=== PATIENT | male | born 1940 | race Caucasian/White ===

== ENCOUNTER 2016-12-18 16:16 | Inpatient (IN) | payer MEDICARE, BC ==
[~2016-12-18] VITALS: Ht 185.4 cm; Wt 113.6 kg
[~2016-12-18 16:16] MED LIST: ALDACTONE 25MG25 M1 PO; AMBIEN 5MG TABLE5 MG PO; AMOXICILLIN 50500 MG PO; ASPIRIN E.C. 8181 MG; BACTRIM DS 8001 TAB PO; BENADRYL25 M2 PO; CARDIZEM120 MG; CATAPRES-TTS 20.2 M1; CATAPRES0.2 MG; CEPHALEXIN500 M1 PO; COUMADIN 1010 MG/TAB PO; EDARB4012.5TAB PO; EDARB4025TAB PO; HYZAAR 50-12.1 UDTAB PO; INSLANT SQ; K-TAB20 PO; LANOXIN 0.120.125 MG PO; LASIX 20MG TABL20 MG PO; LASIX 40MG TABL40 MG PO; LOVENOX 6060 MG/0.6 SQ; NOVOLOG FLEX100 U/ML SC; NOVOLOG FLEX100 U/ML SQ; PERCOCET 325 MG1 TA2 PO; PRINIVIL20 MG PO; TOPROL XL 25MG25 MG PO; TOPROL XL100 MG; TOPROL XL100 MG PO; TYLENOL EXTRA500 M1 PO; TYLENOL PM EXTR1 TA1 PO; ULTRAM 50MG TAB50 MG PO; ZAROXOLYN 2.52.5 MG PO; digitek PO
[2016-12-18 17:18] LABS: BASO % 0.3 % (0.0-2.0); EOS % 0.3 % (0-4.0); GRAN # 9.5 (1.4-6.5); HEMATOCRIT 45.3 % (42.0-52.0); HEMOGLOBIN 15.3 g/dl (13.5-18.0); LYMPH # 0.5 (1.2-3.4); LYMPH % 4.3 % (20.0-51.0); MEAN CELL VOLUME 100 fl (80.0-100.0); MEAN CORPUSCULAR HEMOGLOBIN 34 pg (27.0-31.0); MEAN CORPUSCULAR HGB CONC 34 g/dl (33.0-37.0); MEAN PLATELET VOLUME 10.7 fl (7.4-10.4); MONO # 0.7 (0.1-0.6); MONO % 6.6 % (1.7-9.3); PLATELET COUNT 133 K/mm3 (130-400); RED BLOOD COUNT 4.55 M/mm3 (4.20-5.60); REDCELL DISTRIBUTION WIDTH-CV 15.7 % (11.5-14.5); WHITE BLOOD COUNT 10.8 K/mm3 (4.8-10.8)
[2016-12-18 17:29] LABS: ADJUSTED CALCIUM 8.9 mg/dL (8.4-10.2); ALBUMIN 4.5 gm/dL (3.5-5.0); BILIRUBIN,TOTAL 1.7 mg/dL (0.0-1.0); C-REACTIVE PROTEIN 2.6 mg/dL (0.0-0.9); CALCIUM 9.3 mg/dL (8.4-10.2); CREATININE, serum 1.03 mg/dL (0.66-1.25); INR 3.1 (0.8-3.0); POTASSIUM 3.6 mmol/L (3.4-5.0); TOTAL PROTEIN 7.6 gm/dL (6.4-8.2)
[2016-12-18 17:58] LABS: DIGOXIN 0.6 ng/mL (0.8-2.0)
[2016-12-18 20:52] VITALS: BP 132/71; PULSE 84; TEMP 97.6
[2016-12-18 22:06] VITALS: BP 138/89; PULSE 100; TEMP 98.1
[2016-12-19 01:56] VITALS: BP 135/74; PULSE 71; TEMP 98.4
[2016-12-19 05:36] VITALS: BP 126/84; PULSE 91; TEMP 98.9
[2016-12-19 07:16] LABS: HEMATOCRIT 45.7 % (42.0-52.0); HEMOGLOBIN 14.8 g/dl (13.5-18.0); MEAN CELL VOLUME 103 fl (80.0-100.0); MEAN CORPUSCULAR HEMOGLOBIN 33 pg (27.0-31.0); MEAN CORPUSCULAR HGB CONC 32 g/dl (33.0-37.0); MEAN PLATELET VOLUME 10.8 fl (7.4-10.4); PLATELET COUNT 146 K/mm3 (130-400); RED BLOOD COUNT 4.45 M/mm3 (4.20-5.60); REDCELL DISTRIBUTION WIDTH-CV 16.1 % (11.5-14.5); WHITE BLOOD COUNT 3.1 K/mm3 (4.8-10.8)
[2016-12-19 07:30] LABS: ALBUMIN 4.1 gm/dL (3.5-5.0); CALCIUM 8.8 mg/dL (8.4-10.2); CREATININE, serum 1.04 mg/dL (0.66-1.25); PHOSPHOROUS 3.3 mg/dL (2.5-4.5); POTASSIUM 3.9 mmol/L (3.4-5.0)
[2016-12-19 07:31] LABS: ADD PATHOLOGY DIFF REVIEW NO
[2016-12-19 08:13] LABS: PROTHROMBIN TIME 36.1 SECONDS (9.7-12.8)
[2016-12-19 08:22] LABS: INR 3.1 (0.8-3.0)
[2016-12-19 10:04] LABS: BAND 55 % (0-10); EOSINOPHIL 2 % (0-4); NEUTROPHILS 8 % (42.0-75.2); TOTAL CELLS COUNTED 100
[2016-12-19 10:05] LABS: PLATELET ESTIMATE NORMAL (NORMAL)
[2016-12-19 10:26] VITALS: BP 123/77; PULSE 115; TEMP 98.9
[2016-12-19 14:26] VITALS: BP 155/87; PULSE 110; TEMP 100.2
[2016-12-19 14:55] VITALS: TEMP 99.6
== END 2016-12-19 15:33 | disposition home or self-care (01) | DRG 389 ==
LOC: COL.ER 16:16 → JCC 19:02
PROVIDERS: Nurse Practitioner; Surgery
DX: K56.5 Intestinal adhesions [bands] with obstruction (postinfection) (principal); C78.7 Secondary malignant neoplasm of liver and intrahepatic bile duct; I10 Essential (primary) hypertension; Z85.038 Personal history of other malignant neoplasm of large intestine; Z85.05 Personal history of malignant neoplasm of liver; Z96.643 Presence of artificial hip joint, bilateral; Z79.01 Long term (current) use of anticoagulants; Z87.891 Personal history of nicotine dependence
CPT/HCPCS: A9284; J1170; J1644; J2270; J2405; J7030; J7120; Q9967

== ENCOUNTER 2018-03-26 06:22 | Emergency (ER) | payer MEDICARE, BC ==
[~2018-03-26] VITALS: Ht 185.4 cm; Wt 119.1 kg
[2018-03-26 06:29] VITALS: TEMP 98.1
[2018-03-26] MEDS ORDERED: CEPHALEXIN500 M1 PO (07:32)
[2018-03-26 07:38] VITALS: BP 140/70; PULSE 88
== END 2018-03-26 07:40 | disposition home or self-care (01) ==
LOC: COL.ER 06:22
DX: S61.212A Laceration without foreign body of right middle finger without damage to nail, initial encounter (principal); I48.91 Unspecified atrial fibrillation; I10 Essential (primary) hypertension; Z23 Encounter for immunization; Z85.038 Personal history of other malignant neoplasm of large intestine; Z79.01 Long term (current) use of anticoagulants; W22.8XXA Striking against or struck by other objects, initial encounter; Y92.009 Unspecified place in unspecified non-institutional (private) residence as the place of occurrence of the external cause

== ENCOUNTER → 2018-06-21 | Outpatient (CLI) | payer MEDICARE, BC ==
[~2018-06-21] MED LIST changes: +CARAFATE S1 GM/10 ML PO; +CATAPRES0.2 MG PO; +COUMADIN 5MG5 MG/TAB PO; +EDARBI40 MG PO; +FERROUS SU325 MG/TAB PO; +K-DUR 10 MEQ T10 MEQ PO; +PROTONIX 40MG T40 MG PO; +REVATIO20 MG PO; +TYLENOL 500MG500 MG PO; +ZEBETA 5MG5 MG PO
== END ==
LOC: COL.VAS 14:26
DX: Z13.6 Encounter for screening for cardiovascular disorders (principal); M79.89 Other specified soft tissue disorders

== ENCOUNTER 2018-07-11 08:09 | Emergency (ER) | payer MEDICARE, BC ==
[~2018-07-11] VITALS: Ht 185.4 cm; Wt 125.0 kg
[2018-07-11 08:13] VITALS: TEMP 97.9
[2018-07-11 08:51] LABS: COLLECTION METHOD CLEAN CATCH
[2018-07-11 08:56] LABS: PH 6 (5-8); SQUAMOUS EPITHELIAL 0-2 /hpf; URINE APPEARANCE Clear; URINE BACTERIA None Seen /hpf; URINE BILIRUBIN Negative (NEGATIVE); URINE BLOOD Negative (NEGATIVE); URINE COLOR Straw; URINE GLUCOSE Negative (NEGATIVE); URINE KETONE Negative (NEGATIVE); URINE LEUKOCYTE ESTERASE Negative (NEGATIVE); URINE NITRATE Negative (NEGATIVE); URINE PROTEIN(semi-quant) Negative (NEGATIVE); URINE RBC None Seen /hpf; URINE UROBILINOGEN Negative (NEGATIVE)
[2018-07-11 09:43] LABS: BASO % 0.6 % (0.0-2.0); EOS # 0.1 (0.0-0.7); EOS % 1.9 % (0-4.0); GRAN # 5.3 (1.4-6.5); GRAN % 78.9 % (42.2-75.2); HEMOGLOBIN 10.1 g/dl (13.5-18.0); LYMPH # 0.5 (1.2-3.4); LYMPH % 7.5 % (20.0-51.0); MEAN CELL VOLUME 96 fl (80.0-100.0); MEAN CORPUSCULAR HEMOGLOBIN 29 pg (27.0-31.0); MEAN CORPUSCULAR HGB CONC 30 g/dl (33.0-37.0); MONO # 0.7 (0.1-0.6); MONO % 10.7 % (1.7-9.3); PLATELET COUNT 189 K/mm3 (130-400); RED BLOOD COUNT 3.47 M/mm3 (4.20-5.60); REDCELL DISTRIBUTION WIDTH-CV 16.6 % (11.5-14.5)
[2018-07-11 09:46] LABS: HEMATOCRIT 33.3 % (42.0-52.0)
[2018-07-11 09:53] LABS: ALBUMIN 2.8 gm/dL (3.5-5.0); BILIRUBIN,TOTAL 0.7 mg/dL (0.0-1.0); C-REACTIVE PROTEIN 2.5 mg/dL (0.0-0.9); CALCIUM 8.1 mg/dL (8.4-10.2); CREATININE, serum 1.35 mg/dL (0.66-1.25); MAGNESIUM 1.8 mg/dL (1.6-2.3); PHOSPHOROUS 3.9 mg/dL (2.5-4.5); POTASSIUM 3.1 mmol/L (3.4-5.0); TOTAL PROTEIN 5.7 gm/dL (6.4-8.2)
[2018-07-11 11:51] VITALS: BP 119/74; PULSE 59
[2018-07-22] MEDS ORDERED: ALDACTONE 25MG25 M1 PO (11:34)
[2018-07-26] MEDS ORDERED: TESSALON P100 MG/CAP PO (11:13)
[2018-07-26] MEDS ORDERED: LASIX 20MG TABL20 MG PO (14:22)
== END 2018-07-11 11:53 | disposition home or self-care (01) ==
LOC: COL.ER 08:09
PROVIDERS: Emergency Medicine
DX: I50.9 Heart failure, unspecified (principal); N50.89 Other specified disorders of the male genital organs; I10 Essential (primary) hypertension; I48.91 Unspecified atrial fibrillation; Z95.0 Presence of cardiac pacemaker
CPT/HCPCS: J1940; J3480

== ENCOUNTER 2018-08-30 10:39 | Emergency (ER) | payer MEDICARE, BC ==
[~2018-08-30] VITALS: Ht 185.4 cm; Wt 162.7 kg
[~2018-08-30 10:39] MED LIST changes: +CALCITRIOL PO; +FERROUSAL325 MG PO; +HUMALOG100 U/ML SQ; +IPRATROPIUM BROM3 M1 IH; +MIRALAX PA17 GM/Dose PO; +PROTONIX20 MG PO; +ROBITUSSIN A-C S1 M1 PO; +TESSALON P100 MG/CAP PO
[2018-08-30 10:48] VITALS: TEMP 97.1
[2018-08-30 11:54] LABS: BASO % 0.3 % (0.0-2.0); EOS # 0.2 (0.0-0.7); EOS % 2.4 % (0-4.0); GRAN # 4.9 (1.4-6.5); GRAN % 76.8 % (42.2-75.2); LYMPH # 0.5 (1.2-3.4); LYMPH % 8.2 % (20.0-51.0); MEAN CELL VOLUME 92 fl (80.0-100.0); MEAN CORPUSCULAR HGB CONC 28 g/dl (33.0-37.0); MEAN PLATELET VOLUME 10.7 fl (7.4-10.4); MONO # 0.8 (0.1-0.6); MONO % 11.8 % (1.7-9.3); PLATELET COUNT 163 K/mm3 (130-400); RED BLOOD COUNT 3.52 M/mm3 (4.20-5.60); REDCELL DISTRIBUTION WIDTH-CV 19.6 % (11.5-14.5)
[2018-08-30 11:56] LABS: INR 1.3 (0.8-3.0); PROTHROMBIN TIME 15.2 SECONDS (9.7-12.8)
[2018-08-30 11:57] LABS: ALBUMIN 3.1 gm/dL (3.5-5.0); BILIRUBIN,TOTAL 0.5 mg/dL (0.0-1.0); CALCIUM 8.4 mg/dL (8.4-10.2); CREATININE, serum 1.42 mg/dL (0.66-1.25); POTASSIUM 3.6 mmol/L (3.4-5.0); TOTAL PROTEIN 6.2 gm/dL (6.4-8.2)
[2018-08-30 12:04] LABS: HEMATOCRIT 32.4 % (42.0-52.0); HEMOGLOBIN 9.1 g/dl (13.5-18.0); MEAN CORPUSCULAR HEMOGLOBIN 26 pg (27.0-31.0)
[2018-08-30 12:09] LABS: TROPONIN-I 0.019 ng/mL (0.000-0.034)
[2018-08-30 14:32] VITALS: BP 105/68; PULSE 98
== END 2018-08-30 14:33 | disposition home or self-care (01) ==
LOC: COL.ER 10:39
PROVIDERS: Emergency Medicine
DX: J90 Pleural effusion, not elsewhere classified (principal); I48.91 Unspecified atrial fibrillation; I10 Essential (primary) hypertension; E11.9 Type 2 diabetes mellitus without complications; Z87.891 Personal history of nicotine dependence
CPT/HCPCS: J1940; J7050

== ENCOUNTER 2018-09-02 09:30 | Outpatient (RCR) | payer MEDICARE, BC ==
[2018-09-04] MEDS ORDERED: BUMEX2 MG PO (09:33)
[2018-09-04] MEDS ORDERED: CEPHALEXIN500 M1 PO (09:46)
[2018-09-04] MEDS ORDERED: IPRATROPIUM BROM3 M1 IH (11:39)
== END 2018-09-06 15:54 | disposition home or self-care (01) ==
LOC: WSC 09:30
DX: R26.81 Unsteadiness on feet (principal); R53.1 Weakness; I50.22 Chronic systolic (congestive) heart failure; C18.9 Malignant neoplasm of colon, unspecified; D64.9 Anemia, unspecified; Z86.79 Personal history of other diseases of the circulatory system; Z68.42 Body mass index [BMI] 45.0-49.9, adult; Z87.09 Personal history of other diseases of the respiratory system; Z99.81 Dependence on supplemental oxygen
CPT/HCPCS: G8978-GP; G8979-GP